=== PATIENT | male | born 1985 | race Caucasian/White ===

== ENCOUNTER 2017-05-08 00:02 | Emergency (ER) | payer SELFPAY ==
[~2017-05-08] VITALS: Ht 175.3 cm; Wt 96.0 kg
[2017-05-08] MEDS ORDERED: KETOROLAC 30MG/ML VIAL IM ONE (03:45)
[2017-05-08 03:49] VITALS: BP 151/89
== END 2017-05-08 04:56 | disposition home or self-care (01) ==
LOC: ER 04:18
DX: H66.92 Otitis media, unspecified, left ear (principal); F12.10 Cannabis abuse, uncomplicated
CPT/HCPCS: 96372; 99283; J1885